=== PATIENT | female | born 1995 | race Caucasian/White ===

== ENCOUNTER → 2016-11-10 | Outpatient (CLI) | payer OTHER ==
[~2016-11-10] MED LIST: AMPH10TA2 PO; AMPH1TAB58 PO; ESCI10TA17 PO; HYDR-5688 PO
[2016-11-14 11:57] LABS: CHLAMYDIA TRACH RNA*** NOT DETECTED (NOT DETECTED); GC (NEIS GONORRHOEAE)RNA** NOT DETECTED (NOT DETECTED)
== END | disposition home or self-care (01) ==
LOC: C.LABSPEC 16:56
PROVIDERS: ATTEND Pediatrics
DX: R30.0 Dysuria (principal)

== ENCOUNTER → 2017-02-24 | Outpatient (CLI) | payer OTHER ==
[2017-02-24 13:21] LABS: BASO % 0.5 %; BASO ABS # 0.03 K/uL (0-0.2); COMPLETE YES; EOS % 1.7 %; HEMATOCRIT 44.8 % (37-47); IG% 0.2 %; LYMPH % 32.5 %; LYMPH ABS # 1.86 K/uL (1.2-3.4); MEAN CELL VOLUME 93.7 fL (80-100); MEAN CORPUSCULAR HEMOGLOBIN 31.2 pg (25-34); MEAN CORPUSCULAR HGB CONC 33.3 g/dl (32-36); MEAN PLATELET VOLUME 9.6 fL (7.4-10.4); NEUT % 58.1 %; PLATELET COUNT 275 K/uL (130-400); RED BLOOD COUNT 4.78 M/uL (4.2-5.4); WHITE BLOOD COUNT 5.73 K/uL (4.8-10.8)
[2017-02-24 13:39] LABS: PREG INTERNAL NEGATIVE QC NEG CLEAR BACKGROUND; PREG INTERNAL POSITIVE QC POS CONTROL LINE
== END | disposition home or self-care (01) ==
LOC: C.LAB1850 12:36
PROVIDERS: ATTEND Physician Assistant
DX: R10.84 Generalized abdominal pain (principal); N83.209 Unspecified ovarian cyst, unspecified side

== ENCOUNTER → 2017-08-05 | Outpatient (CLI) | payer OTHER ==
[~2017-08-05] MED LIST changes: -HYDR-5688 PO
[2017-08-05 14:38] LABS: URINE APPEARANCE CLEAR (CLEAR); URINE BILIRUBIN NEG (NEG); URINE COLOR DK YELLOW; URINE NITRITE NEG (NEG); UROBILINOGEN NEG (NEG)
[2017-08-05 14:47] LABS: MANUAL MICROSCOPIC REQUIRED? NO; REVIEW REQ? NO
== END | disposition home or self-care (01) ==
LOC: C.LABSPEC 13:29
PROVIDERS: ATTEND Obstetrics & Gynecology
DX: Z34.01 Encounter for supervision of normal first pregnancy, first trimester (principal)

== ENCOUNTER → 2017-08-08 | Outpatient (CLI) | payer OTHER | END | disposition home or self-care (01) | LOC: C.LAB1850 12:42 | PROVIDERS: ATTEND Obstetrics & Gynecology | DX: Z34.01 Encounter for supervision of normal first pregnancy, first trimester (principal); Z87.59 Personal history of other complications of pregnancy, childbirth and the puerperium ==

== ENCOUNTER 2019-12-04 11:31 | Inpatient (IN) ==
--- OUTSIDE RECORDS SUMMARY | 2019-12-04 11:42 | External Medical Summary | Continuity of Care Document ---
:1995 Author Name Lisa Chan, Provider Address Unavailable Unavailable , Care Team Providers Name Role Phone Unavailable Unavailable Unavailable Cheyenne [email or web address] [email or web address] PCP, [email or web address] Unavailable Unavailable Unavailable Unavailable Unavailable Problems Eczema (692.9) (L30.9) Attention deficit disorder without hyperactivity (314.00) (F 98.8) Common wart (078.19) (B07.8) Migraine headache (346.90) (G43.909) Oppositional defiant disorder (313.81) (F91.3) Ovarian cyst (620.2) (N83.209) General counselling and advice on contraception (V25.09) (Z3 0.09) Allergies and Adverse Reactions Bactrim TABS (Allergy) Onset: 13-May-2014 Reaction: Rash Cephalosporins (Allergy) Keflex TABS (Allergy) Medications Loestrin Fe 1.5/30 1.5-30 MG-MCG Oral Tablet; TAKE 1 T ABLET DAILY. Dustin Keane Start: 08-Aug-2017 Quantity: 1 28 Tablet Pack Refills: 11 Dustin STEEL Refills: 0 Procedures History of oral surgery Status: Complete d Immunizations Hepatitis B On: 1995 0:00 Hepatitis B On: 16-Jan-1996 0:00 Polio On: 16-Jan-1996 0:00 DTaP On: 16-Jan-1996 0:00 HIB On: 01-Mar-1996 0:00 Polio On: 27-Mar-1996 0:00 DTaP On: 27-Mar-1996 0:00 DTaP On: 16-May-1996 0:00 HIB On: 16-May-1996 0:00 HIB On: 28-Jun-1996 0:00 Hepatitis B On: 15-Aug-1996 0:00 Nadia test, tuberculin skin test; purifie d protein derivative, multipuncture device On: 20-Nov-1996 0:00 Polio On: 26-Feb-1997 0:00 DTaP On: 26-Feb-1997 0:00 HIB On: 26-Feb-1997 0:00 MMR On: 26-Feb-1997 0:00 Varicella On: 26-Dec-1998 0:00 Polio On: 04-Apr-2000 0:00 DTaP On: 04-Apr-2000 0:00 MMR On: 15-Jun-2001 0:00 Varicella On: 18-Jul-2007 0:00 Meningo (Menactra) On: 18-Jul-2007 0:00 HPV (Gardasil) On: 18-Jul-2007 0:00 Tdap On: 18-Jul-2007 0:00 HPV (Gardasil) On: 25-Oct-2007 0:00 HPV (Gardasil) On: 19-Jan-2008 0:00 FluMist LIQD On: 18-Jul-2009 12:28 Lot #: [id number], MEDIMMUNE Hepatitis A On: 11-Apr-2012 13:36 Lot #: [id number], [employer] Menactra Intramuscular Injectable On: 11-Apr-2012 13:37 Lot #: [id number], SANOFI PA[employer]UR Hepatitis A 2 On: 20-Oct-2012 9:49 Lot #: [id number], [employer] Family History Father Family history of Asthma (V17.5) Status: Active Family history of Prostate Cancer (V16.42) Status: Active Unknown Family Member Family history of Acute Myocardial Infarction Status: Active Comments: Family History (V17.3) Grandmother Family history of Diabetes Mellitus (V18.0) Status: Active Family history of Hyperlipidemia Status: Active Grandfather Family history of Diabetes Mellitus (V18.0) Status: Active Grandmother Family history of Type 2 Diabetes Mellitus Status: Active Social History - Smoking Status Never smoker Plan of Treatment Planned Observations Planned Goals not documented Results No Known Results Results not documented
[2019-12-04] MEDS ORDERED: OXYTOCIN 30 UNITS/500 ML BAG IV PRN (12:17)
[2019-12-04] MEDS ORDERED: PENICILLIN G POTASSIUM 6 MU in DEXTROSE 5% 250 ML IV STA (12:17)
--- NOTE | 2019-12-04 12:25 | History & Physical Report ---
Date of Service December 04, 2019 Assessment & Plan (1) Amniotic fluid leakin yo at 38.5 wks with SROM, GBS+, Vaginal florecita VSS Afebrile FHR reassuring Plan to admit, monitor, PCN for GBS, Oxytocin All questions were answered (2) GBS (group B Streptococcus carrier), +RV culture, currently : (3) Vagina, candidiasis: History of Present Illness Chief Complaint: Leaking amnitoic fluid Primary Care Provider: NO PCP Patient is a 24 yo at 38.5 wks who started to feel leaking of fluids around 0730 am, and got more and more over time No VB/ ctxs/ Fever/ chills/ N&V/ FOY/ Change in vision +FM She went to office and SROM was confirmed by spekulum exam, by Dr Cordova Her has been uncomplicated except GBS+ Allergies Allergy/AdvReac Type Severity Reaction Status Date / Time Cephalosporins Allergy Mild Hives Verified 12/04/19 12:02 cephalexin [From Keflex] Allergy Hives Verified 12/04/19 12:02 Home Medications Home Medications Medication Instructions Recorded Confirmed Type PNV cmb#95-ferrous fumarate-FA 1 tab PO DAILY 12/04/19 12/04/19 History [] Patient History Medical History Anxiety no meds Ovarian cyst no intervention Surgical History H/O wisdom tooth extraction 2013 Family History Grandmother (Paternal) Diabetes Grandfather (Maternal) Heart disease Father Prostate cancer [place] [employer] History No h/o STD's Review of Systems All systems reviewed & are unremarkable except as noted in HPI & below Physical Exam Constitutional: WD/WN, vitals as above well developed and well nourished [place], NAD Gastrointestinal (Abdomen): Abd: soft, NT, gravid, Abdirahman 8 lb Genitourinary: no vaginal lesions, no adnexal mass normal external appearance ([place]ITE [place] D/C, florecita) VE; cervix 2/ 60%/ -3, ballotable head Results & Data Vital Signs (Past 12 Hours) Vital Signs Pulse BP 12/04/19 11:47 90 123/71 Monitoring External Monitor 130's categ I Tocodynamometer mild irregular ctxs
[2019-12-04 12:55] LABS: Hematocrit (blood only) 37.7 % (37-47); Hemoglobin 12.5 g/dL (12.0-16.0); Mean Corpuscular Hemoglobin 31.4 pg (25-34); Mean Corpuscular Volume 94.7 fL (80-100); Mean Platelet Volume 9.6 fL (7.4-10.4); Platelet Count 179 K/uL (130-400); RDW Coefficient of Variation 13.9 % (11.5-14.5); RDW Standard Deviation 48.2 fL (36.4-46.3); Red Blood Count 3.98 M/uL (4.2-5.4); White Blood Count 12.03 K/uL (4.8-10.8)
[2019-12-04] MEDS: LACTATED RINGER'S 1,000 ML IV PRN ×4 (13:08→23:48)
[2019-12-04] MEDS: OXYTOCIN 30 UNITS/500 ML BAG IV PRN ×2 (13:09→23:16)
[2019-12-04] MEDS: FLUCONAZOLE 50 MG TAB PO SCH (13:11)
[2019-12-04 13:20] LABS: Mean Corpuscular Hgb Conc 33.2 g/dL (32-36)
[2019-12-04] MEDS ORDERED: BUTORPHANOL TARTRATE 1 MG/ML VIAL IV PRN (13:39)
--- NOTE | 2019-12-04 14:56 | Obstetrical Progress Note ---
Date of Service December 04, 2019 Assessment & Plan Admission and Anticipated Discharge Date Admission Date: December 04, 2019 Subjective Patient is reevaluated She feel more ctxs but they are not painful yet +FM's FHR categ I Pitocin is at 6 miu/min Continue to monitor Results & Data ([facility]) Vital Signs (Past 12 Hours) Vital Signs Temp Pulse Resp BP 12/04/19 14:05 97 H 123/75 12/04/19 13:15 36.8 C 12/04/19 13:08 95 H 118/73 12/04/19 11:57 36.6 C 18 12/04/19 11:47 90 123/71
[2019-12-04] MEDS: PENICILLIN G POTASSIUM 3 MU in DEXTROSE 5% 100 ML IV PRN ×2 (16:48→20:58)
--- NOTE | 2019-12-04 17:41 | Obstetrical Progress Note ---
Date of Service December 04, 2019 Assessment & Plan Admission and Anticipated Discharge Date Admission Date: December 04, 2019 Subjective Patient is reevaluated She feel more ctxs but they are not painful yet +FM's FHR categ I Pitocin is at 16 miu/min Ctxs q 1-3 min, patient does not feel them all VE; 2/ 70%/ -2, central, tight bag, AROM'ed clear fluid Continue to monitor closely Results & Data ([facility]) Vital Signs (Past 12 Hours) Vital Signs Temp Pulse Resp BP 12/04/19 17:02 91 H 132/82 12/04/19 16:02 86 119/71 12/04/19 15:15 36.9 C 16 12/04/19 15:02 78 105/56 L 12/04/19 14:05 97 H 123/75 12/04/19 13:15 36.8 C 12/04/19 13:08 95 H 118/73 12/04/19 11:57 36.6 C 18 12/04/19 11:47 90 123/71
[2019-12-04] MEDS ORDERED: BUPIVACAINE 0.25% 30 ML VIAL ONE (17:49)
[2019-12-04] MEDS ORDERED: fentaNYL 2MCG/ML ROPIV 1.25MG/ML 100 ML BAG EPI ONE (17:49)
[2019-12-04] MEDS ORDERED: ePHEDrine sulfate 50 MG/ML AMP ONE (17:49)
[2019-12-04] MEDS ORDERED: fentaNYL citrate 100 MCG/2 ML VIAL ONE (17:49)
--- NOTE | 2019-12-04 18:26 | Anesthesiology Consultation ---
Date of Service December 04, 2019 Assessment & Plan (1) Encounter for pre-operative examination: Chart Review Chart Review: Acceptable Risk for Labor Epidural Consults Requested none ASA ASA2 Proposed Anesthesia Anesthesia Type: Labor Epidural Risk / Benefits Reviewed With: PT / POA / Parent / Guardian, Accepts Plan and Informed Consent Obtained History Height/Weight Height: 5 ft 3 in Weight: 74.843 kg Allergies Allergy/AdvReac Type Severity Reaction Status Date / Time Cephalosporins Allergy Mild Hives Verified 12/04/19 12:02 cephalexin [From Keflex] Allergy Hives Verified 12/04/19 12:27 Medications Home Medications Medication Instructions Recorded Confirmed Last Taken PNV cmb#95-ferrous fumarate-FA 1 tab PO DAILY 12/04/19 12/04/19 12/04/19 08:00 [] Active Medications Generic Name Dose Route Start Last Admin Trade Name Freq PRN Reason Stop Dose Admin Fluconazole 150 mg 12/04/19 12:30 12/04/19 13:11 Diflucan PO 12/14/19 12:29 150 mg QAM FLAVIO Administration Lactated Ringer's 1,000 mls @ 150 mls/hr 12/04/19 12:17 12/04/19 17:45 Lr IV 12/06/19 12:16 999 mls/hr .Q6H40M PRN Administration L&D Protocol Protocol Penicillin G Potassium 3 mu/ 106 mls @ 100 mls/hr 12/04/19 12:17 12/04/19 18:24 Dextrose IV 12/14/19 12:16 Infused Q4H PRN Titration Give until delivery Oxytocin 30 units in 500 mls @ 14 mls/hr 12/04/19 12:25 12/04/19 17:05 Pitocin IV 12/06/19 12:24 0.84 units/hr .Q24H PRN 14 mls/hr Labor Induction/Augmentation Titration Protocol 0.84 UNITS/HR Past Medical History Medical History Anxiety no meds Ovarian cyst no intervention Exercise / Class Metabolic Activity II 4-5 Yardwork/Stairs/Walk up hill Past Family History Family History Grandmother (Paternal) Diabetes Grandfather (Maternal) Heart disease Father Prostate cancer Past Surgical History Surgical History H/O wisdom tooth extraction 2013 Past Anesthesia History No Hx of Anesthesia Complications and No Family Hx of Anesthesia Complications History of PONV No Hx of PONV and No Hx of Motion Sickness Social History Smoking Status: Never smoker Hx Alcohol Use: No Hx Substance Use: No substance use type: does not use Physical Exam Vital Signs Last Vital Signs Temp 98.4 F 12/04/19 15:15 Pulse 83 12/04/19 18:20 Resp 16 12/04/19 15:15 BP 128/65 12/04/19 18:02 Pulse Ox 98 12/04/19 18:20 ENMT Mouth: no dentition abnormality Thyromental Distance: > or= 3.5 Finger Breadths Mallampati Class: II Neck normal visual inspection Respiratory normal respiratory effort Auscultation: lungs clear to auscultation bilaterally Cardiovascular Rate/Rhythm: regular rate and regular rhythm Testing Laboratory Results 12/04/19 12:32
[2019-12-04] MEDS ORDERED: NALOXONE HCL 1 MG in SODIUM CHLORIDE 0.9% 1000ML 1,000 ML IV PRN (18:50)
[2019-12-04] MEDS ORDERED: NALBUPHINE HCL INJ 10 MG/ML AMP IV PRN (18:50)
[2019-12-04] MEDS ORDERED: DiphenhydrAMINE HCL 50 MG/ML VIAL IV PRN (18:50)
[2019-12-04] MEDS ORDERED: ePHEDrine sulfate 50 MG/ML AMP IV PRN (18:50)
[2019-12-04] MEDS ORDERED: fentaNYL 2MCG/ML ROPIV 1.25MG/ML 100 ML BAG EPI PRN (18:50)
[2019-12-04] MEDS ORDERED: NALOXONE HCL 0.4 MG/1 ML VIAL/CARP IV PRN (18:50)
[2019-12-04] MEDS ORDERED: ONDANSETRON INJ 2 MG/ML 2 ML VIAL IV PRN (18:50)
[2019-12-04] MEDS ORDERED: ACETAMINOPHEN 325 MG TAB PO PRN (23:16)
--- NOTE | 2019-12-04 23:17 | Obstetrical Progress Note ---
Date of Service December 04, 2019 Assessment & Plan Admission and Anticipated Discharge Date Admission Date: December 04, 2019 Subjective Patient is reevaluated No pain, epidural has been working well Pitocin was off due to hyperstimulation VE; 6/ 70%/ -3 FHR categ I [place] ctxs spaced out Will restart pitocin and continue to monitor Results & Data ([facility]) Vital Signs (Past 12 Hours) Vital Signs Temp Pulse Resp BP Pulse Ox 12/04/19 23:10 78 97 12/04/19 23:05 76 98 12/04/19 23:01 88 119/60 12/04/19 23:00 36.7 C 98 H 18 99 12/04/19 22:55 83 98 12/04/19 22:50 80 97 12/04/19 22:45 82 116/57 L 98 12/04/19 22:40 83 98 12/04/19 22:35 82 98 12/04/19 22:31 79 127/71 12/04/19 22:30 82 16 99 12/04/19 22:25 86 95 12/04/19 22:20 82 98 12/04/19 22:15 80 119/60 98 12/04/19 22:10 89 98 12/04/19 22:05 85 98 12/04/19 22:01 88 114/56 L 12/04/19 22:00 89 16 99 12/04/19 21:55 88 98 12/04/19 21:50 86 99 12/04/19 21:45 76 121/56 L 98 12/04/19 21:40 85 100 12/04/19 21:35 82 98 12/04/19 21:31 88 131/72 12/04/19 21:30 83 20 98 12/04/19 21:25 76 98 12/04/19 21:20 94 H 99 12/04/19 21:15 76 16 120/58 L 99 12/04/19 21:10 87 99 12/04/19 21:06 36.9 C 12/04/19 21:05 75 99 12/04/19 21:01 96 H 130/65 12/04/19 21:00 89 16 99 12/04/19 20:55 80 98 12/04/19 20:50 77 98 12/04/19 20:45 79 16 118/57 L 97 02/18/20 20:40 81 98 02/18/20 20:35 80 98 02/18/20 20:30 80 16 120/56 L 98 02/18/20 20:25 78 98 02/18/20 20:20 87 98 02/18/20 20:15 78 16 109/57 L 99 02/18/20 20:10 79 98 02/18/20 20:05 76 98 02/18/20 20:00 76 16 99 02/18/20 19:59 78 125/59 L 0218/20 19:55 84 98 02/18/20 19:54 78 121/63 02/18/20 19:50 77 98 02/18/20 19:49 83 117/65 02/18/20 19:45 81 16 113/64 98 02/18/20 19:40 80 115/62 99 02/18/20 19:36 78 112/58 L 0218/20 19:35 77 98 02/18/20 19:30 84 16 98 02/18/20 19:25 72 112/53 L 98 02/18/20 19:20 75 112/53 L 98 02/18/20 19:15 71 16 114/52 L 98 02/18/20 19:10 73 115/55 L 99 02/18/20 19:05 81 122/54 L 98 02/18/20 19:00 37.0 C 66 16 118/51 L 98 02/18/20 18:55 76 100 02/18/20 18:53 76 132/61 02/18/20 18:51 72 125/58 L 0218/20 18:50 75 16 98 02/18/20 18:49 74 124/60 02/18/20 18:45 79 98 02/18/20 18:44 86 156/67 H 02/18/20 18:40 84 98 02/18/20 18:35 95 H 99 02/18/20 18:30 105 H 100 02/18/20 18:25 88 99 02/18/20 18:20 83 98 02/18/20 18:15 83 98 02/18/20 18:10 82 99 02/18/20 18:05 78 99 02/18/20 18:02 80 128/65 02/18/20 18:00 72 99 02/18/20 17:55 84 100 02/18/20 17:02 91 H 132/82 12/04/19 16:02 86 119/71 12/04/19 15:15 36.9 C 16 12/04/19 15:02 78 105/56 L 12/04/19 14:05 97 H 123/75 12/04/19 13:15 36.8 C 12/04/19 13:08 95 H 118/73 12/04/19 11:57 36.6 C 18 12/04/19 11:47 90 123/71
[2019-12-04] MEDS ORDERED: ACETAMINOPHEN 325 MG TAB ONE (23:25)
[2019-12-05] MEDS: PENICILLIN G POTASSIUM 3 MU in DEXTROSE 5% 100 ML IV PRN (01:10)
[2019-12-05] MEDS ORDERED: DIPHTHERIA/TETANUS/PERTUSSIS 0.5 ML SYR/VIAL IM ONE (03:46)
[2019-12-05] MEDS ORDERED: BENZOCAINE 20% AER SPR 82.5 GM CAN EXT PRN (03:46)
[2019-12-05] MEDS ORDERED: HYDROCORTISONE ACETATE 25 MG SUPP PR PRN (03:46)
[2019-12-05] MEDS ORDERED: bisacodyL 10 MG SUPP PR PRN (03:46)
[2019-12-05] MEDS ORDERED: MEASLES, MUMPS & RUBELLA VIRUS VIAL SQ ONE (03:46)
[2019-12-05] MEDS ORDERED: OXYCODONE/ACETAMINOPHEN 5mg/325mg TAB PO PRN (03:46)
[2019-12-05] MEDS ORDERED: SUPERCREAM 0.870% 15 GM JAR EXT PRN (03:46)
[2019-12-05] MEDS ORDERED: ACETAMINOPHEN 325 MG TAB PO PRN (03:46)
[2019-12-05] MEDS ORDERED: OXYTOCIN 30 UNITS/500 ML BAG IV PRN (03:46)
--- NOTE | 2019-12-05 06:33 | Delivery Summary ---
DATE OF OPERATION: 12/04/2019 DATE OF DELIVERY: 12/05/2019 TIME: 2:15 a.m. DETAILS OF DELIVERY: The patient was found to be fully dilated and desired to push. She pushed for about half an hour and delivered the head without difficulty. Shoulders were delivered with minimal traction. Baby was handed off to the mother where mouth and nose were suctioned. Cord was clamped x2 and cut. It was 3-vessel cord, and then the perineum and vagina were checked for lacerations. There were first degree labial lacerations on both sides. Those were repaired with 3-0 Vicryl on a SH needle. Excellent hemostasis was achieved. The placenta was found to be in the vagina, delivered spontaneously as intact and complete. Uterus was explored, found to be empty. Lower segment was cleared of all clots and debris. Fundus was firm. EBL was 200 mL. Mom and baby tolerated the procedure well. Sponge, lap, needle count was correct x2. Baby was a viable female , Apgars 9/10, weight is 3385 gr. No complications happened. I was present during whole procedure. I attest to the content of the Intraoperative Record and any orders documented therein. Any exceptions are noted below. MTDD
--- NOTE | 2019-12-05 07:38 | Anesthesia Procedure Note ---
Date of Service December 05, 2019 Anesthesia Post Epidural Note Vital Signs Vital Signs: Temp Pulse Resp BP Pulse Ox 36.6 C 82 18 125/77 100 12/05/19 06:00 12/05/19 06:00 12/05/19 06:00 12/05/19 06:00 12/05/19 02:55 Pain Intensity Bilateral Abdomen: Pain Intensity: 0 Notes Mental Status: alert / awake / arousable and participated in evaluation Nausea / Vomiting: adequately controlled Pain: adequately controlled Airway Patency, RR, SpO2: stable & adequate BP & HR: stable & adequate Hydration State: stable & adequate Neuraxial Anesthesia: was administered and sensory block is resolving Anesthetic Complications: no major complications apparent Epidural: Removed without complications and With tip intact
[2019-12-05] MEDS: PRENATAL VITAMIN 1 TAB PO SCH (08:36)
[2019-12-05] MEDS: DOCUSATE SODIUM 100 MG CAP PO SCH ×2 (08:36→21:07)
[2019-12-05] MEDS: FERROUS SULFATE 325 MG TAB PO SCH (08:37)
[2019-12-05] MEDS: IBUPROFEN 600 MG TAB PO PRN (09:03)
[2019-12-05] MEDS: FLUCONAZOLE 50 MG TAB PO SCH (10:19)
[2019-12-06] MEDS: IBUPROFEN 600 MG TAB PO PRN ×3 (00:01→19:56)
[2019-12-06 06:32] LABS: Hemoglobin 11.4 g/dL (12.0-16.0); Mean Corpuscular Hemoglobin 31.8 pg (25-34); Mean Corpuscular Hgb Conc 33.5 g/dL (32-36); Mean Corpuscular Volume 94.7 fL (80-100); Mean Platelet Volume 9.4 fL (7.4-10.4); Platelet Count 169 K/uL (130-400); RDW Standard Deviation 48.6 fL (36.4-46.3); Red Blood Count 3.59 M/uL (4.2-5.4); White Blood Count 14.28 K/uL (4.8-10.8)
[2019-12-06] MEDS: PRENATAL VITAMIN 1 TAB PO SCH (07:56)
[2019-12-06] MEDS: FERROUS SULFATE 325 MG TAB PO SCH (07:56)
[2019-12-06] MEDS: FLUCONAZOLE 50 MG TAB PO SCH (07:56)
[2019-12-06] MEDS: DOCUSATE SODIUM 100 MG CAP PO SCH ×2 (07:56→21:36)
--- NOTE | 2019-12-06 08:50 | Obstetrical Progress Note ---
Date of Service December 06, 2019 Assessment & Plan Admission and Anticipated Discharge Date Admission Date: December 04, 2019 Subjective Patient is seen and examined. She feels well, no complaints. Ambulating without dizziness Voiding without difficulty Tolerating regular diet with out N&V Bleeding is minimal No fever/ chills/ CP/ SOB/ N&V/ Leg pain Breast feeding without problems Lab Results 12/04/19 12/06/19 Range/Units 12:32 06:06 WBC 12.03 H 14.28 H (4.8-10.8) K/uL RBC 3.98 L 3.59 L (4.2-5.4) M/uL Hgb 12.5 11.4 L (12.0-16.0) g/dL Hct 37.7 34.0 L (37-47) % MCV 94.7 94.7 (80-100) fL MCH 31.4 31.8 (25-34) pg MCHC 33.2 33.5 (32-36) g/dL RDW Std Deviation 48.2 H 48.6 H (36.4-46.3) fL RDW Coeff of María 13.9 14.0 (11.5-14.5) % Plt Count 179 169 (130-400) K/uL MPV 9.6 9.4 (7.4-10.4) fL Vital Signs Temp Pulse Resp BP Pulse Ox 12/06/19 07:56 36.7 C 81 18 128/79 98 12/05/19 19:30 36.7 C 86 18 128/67 12/05/19 12:00 36.5 C 89 18 133/79 99 Intake and Output 12/05/19 12/06/19 12/06/19 22:59 06:59 14:59 Intake Total 0 / 0 Balance 0 / 0 Intake: IV 0 / 0 Lr 1,000 ml @ 150 mls/hr IV . 0 / 0 Q6H40M PRN Rx#:[id number] PE: General: Alert, orientedx3, NAD Abd: soft, NT, fundus firm, below Umbilicus Perineum intact, Lochia rubra minimal Ext; NT, no edema AP: 24 yo s/p , ppd# 1 VSS Afebrile doing well Continue routine care All questions were answered D/C home tomorrow Results & Data ([place]) Vital Signs (Past 12 Hours) Vital Signs Temp Pulse Resp BP Pulse Ox 12/06/19 07:56 36.7 C 81 18 128/79 98
[2019-12-06] MEDS ORDERED: bisacodyL 5 MG TABEC PO SCH (20:00)
[2019-12-07 06:30] LABS: Hematocrit (blood only) 31.9 % (37-47); Hemoglobin 10.9 g/dL (12.0-16.0)
[2019-12-07] MEDS: IBUPROFEN 600 MG TAB PO PRN (06:36)
[2019-12-07] MEDS: DOCUSATE SODIUM 100 MG CAP PO SCH (07:52)
[2019-12-07] MEDS: PRENATAL VITAMIN 1 TAB PO SCH (07:52)
--- NOTE | 2019-12-07 09:04 | Obstetrical Progress Note ---
Date of Service December 07, 2019 Assessment & Plan Admission and Anticipated Discharge Date Admission Date: December 04, 2019 Subjective doing fine Physical Exam Constitutional: WD/WN, vitals as above comfortable abdomen soft non- tender neg Ernie's for d/c Results & Data ([facility]) Vital Signs (Past 12 Hours) Vital Signs Temp Pulse Resp BP Pulse Ox 12/07/19 08:00 36.6 C 80 18 116/72 99 12/06/19 23:00 36.7 C 80 18 118/76 Laboratory Results 12/04/19 12/06/19 12/07/19 12:32 06:06 06:02 WBC 12.03 H 14.28 H RBC 3.98 L 3.59 L Hgb 12.5 11.4 L 10.9 L Hct 37.7 34.0 L 31.9 L MCV 94.7 94.7 MCH 31.4 31.8 MCHC 33.2 33.5 RDW Std Deviation 48.2 H 48.6 H RDW Coeff of María 13.9 14.0 Plt Count 179 169 MPV 9.6 9.4
[2019-12-07] MEDS: FLUCONAZOLE 50 MG TAB PO SCH (09:42)
[2019-12-07] MEDS: FERROUS SULFATE 325 MG TAB PO SCH (09:42)
== END 2019-12-07 16:30 | disposition home or self-care (01) | DRG 807 ==
LOC: 4S1 11:31 → OPB 11:31 → 4S1 12:17 → 4S2 12-05 06:16

== ENCOUNTER 2022-03-18 06:06 | Inpatient (IN) ==
[2022-03-18] MEDS ORDERED: LACTATED RINGER'S 1,000 ML IV PRN (06:10)
[2022-03-18] MEDS ORDERED: OXYTOCIN 30 UNITS/500 ML BAG IV PRN ×2 (06:10→12:07)
[2022-03-18] MEDS ORDERED: fentaNYL citrate 100 MCG/2 ML VIAL ONE (06:25)
[2022-03-18] MEDS ORDERED: ePHEDrine sulfate 50 MG/ML AMP ONE (06:25)
[2022-03-18] MEDS ORDERED: SODIUM CHLORIDE 0.9% INJ 10 ML VIAL ONE (06:25)
[2022-03-18] MEDS ORDERED: fentaNYL 2MCG/ML ROPIVACAINE 1.25MG/ML 100 ML BAG EPI ONE (06:26)
[2022-03-18] MEDS ORDERED: BUPIVACAINE 0.25% 30 ML VIAL ONE (06:26)
[2022-03-18] MEDS ORDERED: PENICILLIN G POTASSIUM 6 MU in DEXTROSE 5% 250 ML IV ONE (06:30)
--- NOTE | 2022-03-18 06:36 | History & Physical Report ---
Date of Service March 18, 2022 Assessment & Plan (1) : Plan: admit in active labor Start abx for GBS plans for epidural Admission and Anticipated Discharge Date Admission Date: March 18, 2022 History of Present Illness Chief Complaint: onset of labor at term Primary Care Provider: IRAIDA PCP 26 F [id number] at 39 weeks admitted in active labor. GBS is positive. Allergies Allergy/AdvReac Type Severity Reaction Status Date / Time Cephalosporins Allergy Mild Hives Verified 12/04/19 12:02 cephalexin [From Keflex] Allergy Hives Verified 12/04/19 12:27 Home Medications Medication Instructions Recorded Confirmed Type vit no.95-ferrous 1 tab PO DAILY 12/04/19 03/18/22 History fumarate 28 mg-folic acid 800 mcg tablet () breast pump #1 ea 12/07/19 Rx Past Med/Surg History Medical History Anemia Anxiety no meds Ovarian cyst no intervention Surgical History H/O wisdom tooth extraction 2013 Family History Grandmother (Paternal) Diabetes Grandfather (Maternal) Heart disease Father Prostate cancer Social History Smoking Status: Never smoker Second Hand Exposure: No; Hx Alcohol Use: No Hx Substance Use: No Preferred Language: Tongan Communication Ability: Effective Fruit Thinner Required: No Beliefs That Will Affect Care: None marital status: Current Living Situation: Spouse Current Living Situation Comment: daughter 2yo Other Information That Helps Us Care for You: No Feels Safe at Home: Yes Safety Concerns: Feels Safe At This Time Assistive Devices: None Review of Systems Review of Systems: All systems reviewed & are unremarkable except as noted in HPI & below Physical Exam Constitutional: WD/WN, vitals as above Eyes: PERRL, conjunctivae normal, anicteric sclerae Respiratory: normal respiratory effort, lungs clear to auscultation Cardiovascular: RRR, no murmur, no edema Skin: no rashes, warm and dry Neurologic: patellar DTR's 2+ bilat, sensation intact Psychiatric: A+Ox3, euthymic affect Genitourinary: OB Exam Abdomen: + fundal height and + vertex Manual OB Exam: + cervical dilation 6 cm, + cervical effacement 100% and + station -1 OB Exam Monitor Tracing: + external FHT monitor used, + external uterine monitor used, + category I and + normal FHT variability Results & Data Results & Data ([facility]) Vital Signs (Past 12 Hours) Vital Signs Temp Pulse Resp BP 03/18/22 06:14 36.9 C 18 03/18/22 06:13 91 H 128/65
[2022-03-18 06:47] LABS: Hematocrit (blood only) 38.4 % (37-47); Hemoglobin 12.6 g/dL (12.0-16.0); Mean Corpuscular Hgb Conc 32.8 g/dL (32-36); Mean Corpuscular Volume 94.6 fL (80-100); Mean Platelet Volume 9.6 fL (7.4-10.4); Platelet Count 186 K/uL (130-400); RDW Coefficient of Variation 15.8 % (11.5-14.5); RDW Standard Deviation 54.6 fL (36.4-46.3); Red Blood Count 4.06 M/uL (4.2-5.4); White Blood Count 16.87 K/uL (4.8-10.8)
[2022-03-18] MEDS ORDERED: diphenhydrAMINE 50 MG/ML VIAL IV PRN (07:33)
[2022-03-18] MEDS ORDERED: NALBUPHINE HCL INJ 10 MG/ML AMP IV PRN (07:33)
[2022-03-18] MEDS ORDERED: NALOXONE HCL 1 MG in SODIUM CHLORIDE 0.9% 1000ML 1,000 ML IV PRN (07:33)
[2022-03-18] MEDS ORDERED: fentaNYL 2MCG/ML ROPIVACAINE 1.25MG/ML 100 ML BAG EPI PRN (07:33)
[2022-03-18] MEDS ORDERED: NALOXONE HCL 0.4 MG/1 ML VIAL/CARP IV PRN (07:33)
[2022-03-18] MEDS ORDERED: PROMETHAZINE HCL 6.25 MG in SODIUM CHLORIDE 0.9% 50 ML IV PRN (07:33)
[2022-03-18] MEDS ORDERED: ePHEDrine sulfate 50 MG/ML AMP IV PRN (07:33)
[2022-03-18] MEDS ORDERED: ONDANSETRON INJ 2 MG/ML 2 ML VIAL IV PRN (07:33)
--- NOTE | 2022-03-18 07:34 | Anesthesiology Consultation ---
Date of Service March 18, 2022 Assessment & Plan Chart Review Chart Review: Patient NOT seen in Pre Admission Testing and Acceptable Risk for Labor Epidural Consults Requested none ASA ASA2 Proposed Anesthesia Anesthesia Type: Labor Epidural Risk / Benefits Reviewed With: PT / POA / Parent / Guardian, Accepts Plan and Informed Consent Obtained History Height/Weight Height: 5 ft 3 in Weight: 75.75 kg Allergies Allergy/AdvReac Type Severity Reaction Status Date / Time Cephalosporins Allergy Mild Hives Verified 12/04/19 12:02 cephalexin [From Keflex] Allergy Hives Verified 12/04/19 12:27 Medications Home Medications Medication Instructions Recorded Confirmed Last Taken vit no.95-ferrous 1 tab PO DAILY 12/04/19 03/18/22 03/17/22 07:30 fumarate 28 mg-folic acid 800 mcg tablet () breast pump #1 ea 12/07/19 Unknown Active Medications Generic Name Dose Route Start Last Admin Trade Name Freq PRN Reason Stop Dose Admin Lactated Ringer's 1,000 mls @ 125 mls/hr 03/18/22 06:10 03/18/22 06:17 Lr IV 03/20/22 06:09 125 mls/hr .Q8H PRN Administration L&D Protocol Protocol Past Medical History Medical History Anemia Anxiety no meds Ovarian cyst no intervention Exercise / Class Metabolic Activity II 4-5 Yardwork/Stairs/Walk up hill Past Family History Family History Grandmother (Paternal) Diabetes Grandfather (Maternal) Heart disease Father Prostate cancer Past Surgical History Surgical History H/O wisdom tooth extraction 2013 Past Anesthesia History No Hx of Anesthesia Complications and No Family Hx of Anesthesia Complications History of PONV No Hx of PONV and No Hx of Motion Sickness Social History Smoking Status: Never smoker tobacco type: cigarettes Hx Alcohol Use: No Hx Substance Use: No substance use type: does not use Physical Exam Vital Signs Last Vital Signs Temp 36.9 C 03/18/22 06:14 Pulse 90 03/18/22 07:31 Resp 18 03/18/22 06:14 BP 99/53 L 03/18/22 07:31 Pulse Ox 96 03/18/22 07:29 ENMT Mouth: no dentition abnormality Thyromental Distance: > or= 3.5 Finger Breadths Mallampati Class: II Neck normal visual inspection Respiratory normal respiratory effort Auscultation: lungs clear to auscultation bilaterally Cardiovascular Rate/Rhythm: regular rate and regular rhythm Psychiatric Orientation: alert Testing Laboratory Results 03/18/22 06:33
--- NOTE | 2022-03-18 08:07 | Obstetrical Progress Note ---
Date of Service March 18, 2022 Assessment & Plan Admission and Anticipated Discharge Date Admission Date: March 18, 2022 Subjective Patient is seen and examined. She is known to me from prior / delivery. Admitted by Dr Cordova for active labor. Received epidural for pain, now comfortable. FHR categ I GBS, 1st dose of PCN has just finished given here VE; 10/ 10% bulging bag, head at -2 Continue to monitor closely Anticipate Results & Data ([facility]) Vital Signs (Past 12 Hours) Vital Signs Temp Pulse Resp BP Pulse Ox 03/18/22 08:01 94 H 109/61 03/18/22 08:00 95 H 98 03/18/22 07:58 87 107/58 L 03/18/22 07:55 84 106/58 L 96 03/18/22 07:52 104 H 111/59 L 03/18/22 07:50 91 H 97 03/18/22 07:49 83 113/60 03/18/22 07:45 99 H 112/56 L 98 03/18/22 07:44 112 H 92 03/18/22 07:42 82 88/53 L 03/18/22 07:41 95 H 86/59 L 03/18/22 07:39 93 H 100/59 L 96 03/18/22 07:37 36.6 C 87 18 100/51 L 03/18/22 07:35 79 100/50 L 03/18/22 07:34 83 96 03/18/22 07:33 80 98/51 L 94 03/18/22 07:31 90 99/53 L 03/18/22 07:29 79 107/53 L 96 03/18/22 07:27 85 94/50 L 94 03/18/22 07:25 73 116/54 L 03/18/22 07:24 78 115/53 L 94 03/18/22 07:20 86 94 03/18/22 07:19 84 120/56 L 94 03/18/22 07:15 97 H 90 03/18/22 07:14 93 H 96 03/18/22 07:09 91 H 86 L 03/18/22 06:14 36.9 C 18 03/18/22 06:13 91 H 128/65
--- NOTE | 2022-03-18 09:04 | Obstetrical Progress Note ---
Date of Service March 18, 2022 Assessment & Plan Admission and Anticipated Discharge Date Admission Date: March 18, 2022 Subjective FHR had episode of decreased variability Maternal pulse ox 94-95% while sleeping, 97-98% upon waking up VE; large bulging bag, attempt to scalp stimulation but head is high ballotable with touch Mother was given nasal O2, pulse ox went up to 100% and FHR variability increased Nasal O2 is set to to 2 lt, while patient is sleeping Continue to monitor closely Results & Data ([facility]) Vital Signs (Past 12 Hours) Vital Signs Temp Pulse Resp BP Pulse Ox 03/18/22 09:00 75 98 03/18/22 08:55 81 92/50 L 97 03/18/22 08:50 83 96 03/18/22 08:45 82 97 03/18/22 08:40 82 102/55 L 95 03/18/22 08:39 84 94 03/18/22 08:35 79 95 03/18/22 08:32 90 93 03/18/22 08:30 89 97 03/18/22 08:25 91 H 105/63 96 03/18/22 08:20 87 95 03/18/22 08:17 92 H 93 03/18/22 08:15 92 H 95 03/18/22 08:10 91 H 111/63 97 03/18/22 08:07 86 116/62 03/18/22 08:06 96 H 93 03/18/22 08:05 87 97 03/18/22 08:04 88 107/64 03/18/22 08:01 94 H 109/61 03/18/22 08:00 95 H 98 03/18/22 07:58 87 107/58 L 03/18/22 07:55 84 106/58 L 96 03/18/22 07:52 104 H 111/59 L 03/18/22 07:50 36.6 C 91 H 18 95 03/18/22 07:49 83 113/60 03/18/22 07:45 99 H 112/56 L 98 03/18/22 07:44 112 H 92 03/18/22 07:42 82 88/53 L 03/18/22 07:41 95 H 86/59 L 03/18/22 07:39 93 H 100/59 L 96 03/18/22 07:37 36.6 C 87 18 100/51 L 06/02/22 07:35 79 100/50 L 03/18/22 07:34 83 96 03/18/22 07:33 80 98/51 L 94 03/18/22 07:31 90 99/53 L 03/18/22 07:29 79 107/53 L 96 03/18/22 07:27 85 94/50 L 94 03/18/22 07:25 73 116/54 L 03/18/22 07:24 78 115/53 L 94 03/18/22 07:20 86 94 03/18/22 07:19 84 120/56 L 94 03/18/22 07:15 97 H 90 03/18/22 07:14 93 H 96 03/18/22 07:09 91 H 86 L 03/18/22 06:14 36.9 C 18 03/18/22 06:13 91 H 128/65
[2022-03-18] MEDS ORDERED: PENICILLIN G POTASSIUM 3 MU in DEXTROSE 5% 100 ML IV PRN (09:10)
[2022-03-18] MEDS ORDERED: MEASLES, MUMPS & RUBELLA VIRUS VIAL SQ ONE (12:07)
[2022-03-18] MEDS ORDERED: HYDROCORTISONE ACETATE 25 MG SUPP PR PRN (12:07)
[2022-03-18] MEDS ORDERED: bisacodyL 10 MG SUPP PR PRN (12:07)
[2022-03-18] MEDS ORDERED: BENZOCAINE 20% AER SPR 82.5 GM CAN EXT PRN (12:07)
[2022-03-18] MEDS ORDERED: METHYLERGONOVINE MALEATE 0.2 MG/ML AMP IM ONE (12:07)
[2022-03-18] MEDS ORDERED: DIPHTHERIA/TETANUS/PERTUSSIS 0.5 ML SYR/VIAL IM ONE (12:07)
[2022-03-18] MEDS ORDERED: METHYLERGONOVINE MALEATE 0.2 MG/ML AMP ONE (12:07)
--- NOTE | 2022-03-18 12:14 | Delivery Summary ---
Vaginal Delivery Summary Date of Service March 18, 2022 Vaginal Delivery Summary Patient was found to be fluid dilated and desired to push she pushed through few contractions and delivered the head without difficulty. The shoulders were delivered with minimal traction. Baby was handed off to the mother where mouth and nose were suctioned. The cord was clamped times and cut at 1 minute delay. The baby was moving and crying at that point. Vagina and perineum were checked for lacerations, they were found to be intact, no lacerations were found. The placenta was found to be in the vagina, delivered spontaneously as intact and complete. Uterus was explored and found to be empty, lower segment was cleared of all clots and debris's. Fundus was firm and EBL was 300 mL. Mom and baby tolerated procedure well. There was a viable female infant, delivered at 11:49 AM, Apgars were 8/9, the weight is pending. Instrument and sponge counts was correct x2. No complications happened and I was present during whole procedure.
[2022-03-18] MEDS ORDERED: IPRATROPIUM BROMIDE/ALBUTEROL respimat INH INH SCH (13:00)
[2022-03-18] MEDS: IPRATROPIUM BROMIDE HFA INHALER INH SCH ×2 (13:01→20:10)
[2022-03-18] MEDS: ALBUTEROL HFA 8 GM INHALER INH SCH ×2 (13:02→20:09)
[2022-03-18] MEDS: IBUPROFEN 600 MG TAB PO PRN ×2 (13:11→19:29)
[2022-03-18] MEDS ORDERED: METHYLERGONOVINE MALEATE 0.2 MG TAB PO SCH (14:00)
[2022-03-18] MEDS ORDERED: OR MISCELLANEOUS MED ONE (16:17)
--- NOTE | 2022-03-18 16:28 | Anesthesia Procedure Note ---
Date of Service March 18, 2022 Anesthesia Post Epidural Note Vital Signs Vital Signs: Temp Pulse Resp BP Pulse Ox 36.9 C 69 16 133/69 97 03/18/22 11:02 03/18/22 16:18 03/18/22 13:06 03/18/22 16:18 03/18/22 15:54 Pain Intensity Abdomen: Pain Intensity: 1 Notes Mental Status: alert / awake / arousable Nausea / Vomiting: adequately controlled Pain: adequately controlled Airway Patency, RR, SpO2: stable & adequate BP & HR: stable & adequate Hydration State: stable & adequate Neuraxial Anesthesia: was administered and sensory block is resolving Anesthetic Complications: no major complications apparent and Pt Satisfied with anesthetic care Epidural: Removed without complications and With tip intact
[2022-03-18] MEDS: ACETAMINOPHEN 325 MG TAB PO PRN (16:45)
[2022-03-18] MEDS ORDERED: DOCUSATE SODIUM 100 MG CAP PO SCH (21:00)
[2022-03-19] MEDS: IBUPROFEN 600 MG TAB PO PRN (04:44)
[2022-03-19 06:23] LABS: Hematocrit (blood only) 35.8 % (37-47); Hemoglobin 11.7 g/dL (12.0-16.0); Mean Corpuscular Hgb Conc 32.7 g/dL (32-36); Mean Corpuscular Volume 94.7 fL (80-100); Mean Platelet Volume 9.7 fL (7.4-10.4); Platelet Count 176 K/uL (130-400); RDW Coefficient of Variation 15.9 % (11.5-14.5); RDW Standard Deviation 54.9 fL (36.4-46.3); Red Blood Count 3.78 M/uL (4.2-5.4); White Blood Count 15.61 K/uL (4.8-10.8)
[2022-03-19] MEDS: ACETAMINOPHEN 325 MG TAB PO PRN (07:45)
[2022-03-19] MEDS ORDERED: PRENATAL VITAMIN 1 TAB PO SCH (08:00)
[2022-03-19] MEDS ORDERED: FERROUS SULFATE 325 MG TAB PO SCH (08:00)
[2022-03-19] MEDS: IPRATROPIUM BROMIDE HFA INHALER INH SCH ×2 (08:06→11:50)
[2022-03-19] MEDS: ALBUTEROL HFA 8 GM INHALER INH SCH ×2 (08:06→11:50)
--- NOTE | 2022-03-19 09:17 | Obstetrical Progress Note ---
Date of Service March 19, 2022 Assessment & Plan (1) : discharged Subjective Ambulation: ambulating normally Voiding: no voiding problems Passing Gas:: Yes Diet Tolerance:: regular diet Feeding Type:: breast feeding Current Pain Level(1-10): 0 doing well no SOB or wheezing. Wants to go home Physical Exam Constitutional WD/WN, vitals as above Gastrointestinal (Abdomen) Inspection/Auscultation: abdomen normal to inspection Abdomen soft Skin no rashes, warm and dry Neurologic patellar DTR's 2+ bilat, sensation intact Psychiatric A+Ox3, euthymic affect Results & Data ([facility]) Vital Signs (Past 12 Hours) Vital Signs Temp Pulse Resp BP Pulse Ox Pulse Ox 03/19/22 08:06 88 16 98 03/19/22 07:50 36.4 C L 80 16 121/72 98 03/19/22 06:45 98 03/19/22 06:00 97 03/19/22 05:35 97 03/19/22 05:03 97 03/19/22 05:00 36.5 C 70 18 114/72 97 97 03/19/22 04:00 98 03/19/22 03:00 98 98 03/19/22 02:30 97 03/19/22 02:00 98 97 03/19/22 01:30 97 03/19/22 01:00 98 98 03/19/22 00:00 98 03/18/22 23:45 36.6 C 83 18 113/74 98 Laboratory Results Laboratory Results - last 24 hr 03/19/22 05:59 WBC 15.61 H RBC 3.78 L Hgb 11.7 L Hct 35.8 L MCV 94.7 MCH 31.0 MCHC 32.7 RDW Std Deviation 54.9 H RDW Coeff of María 15.9 H Plt Count 176 MPV 9.7 DS: Diagnosis Discharge Diagnosis (1) : Status: None
[2022-03-19] MEDS ORDERED: bisacodyL 5 MG TABEC PO SCH (20:00)
== END 2022-03-19 13:40 | disposition home or self-care (01) | DRG 807 ==
LOC: OPB 06:06 → 4S1 06:07 → 4E2 16:20